=== PATIENT | female | born 1975 | race Caucasian/White ===

== ENCOUNTER 2021-06-23 10:25 | Outpatient (CLI) | payer OTHER, SELFPAY ==
[2021-06-23 10:38] LABS: Basophils Percent Auto 0.7 % (0.2-1.2); Eosinophils Absolute Auto 0.1 K/mm3 (0-0.3); Eosinophils Percent Auto 1.3 % (0-4.4); Hematocrit 39.5 % (37.0-47.0); Hemoglobin 12.9 g/dL (12.0-15.0); Immature Granulocyte Absolute 0.02 K/mm3 (0.00-0.031); Immature Granulocyte Percent A 0.3 % (0-0.5); Lymphocytes Absolute Auto 1.55 K/mm3 (0.9-3.2); Lymphocytes Percent Auto 25.5 % (18.3-44.2); Mean Corpuscular HGB Conc 32.7 g/dl (32-36); Mean Corpuscular Hemoglobin 31.8 pg (26-34); Mean Corpuscular Volume 97.3 fl (80-100); Mean Platelet Volume 8.9 fl (7.4-10.4); Monocytes Absolute Auto 0.5 K/mm3 (0.1-0.6); Monocytes Percent Auto 7.7 % (2.6-8.5); Neutrophils Absolute Auto 3.9 K/mm3 (1.3-6.7); Neutrophils Percent Auto 64.5 % (45.5-73.1); Platelet Count Result 232 k/mm3 (150-375); Red Blood Count 4.06 M/mm3 (4.2-5.4); Red Cell Distribution Width 12.6 % (11.5-14.5); White Blood Count 6.1 K/mm3 (4.5-10.0)
[2021-06-23 10:48] LABS: Alanine Aminotransferase 14 U/L (4-35); Albumin Level 4.6 g/dL (3.5-5.1); Alkaline Phosphatase 49 U/L (38-126); Anion Gap 8 mmol/L (8-16); Aspartate Amino Transferase 26 U/L (14-36); Bilirubin,Total 0.6 mg/dL (0.2-1.3); Blood Urea Nitrogen 10 mg/dL (7-17); Calcium 9.3 mg/dL (8.4-10.2); Carbon Dioxide 24 mmol/L (22-30); Chloride 106 mmol/L (98-107); Cholesterol 232 mg/dL (0-200); Estimated Glomerular Filt Rate > 60; Glucose 107 mg/dL (65-110); HDL Direct 89 mg/dL; Potassium 3.8 mmol/L (3.4-5.0); Sodium 138 mmol/L (137-145); Triglycerides 83 mg/dL (<150)
[2021-06-23 11:00] LABS: LDL Cholesterol Direct 104 mg/dL
[2021-06-23 11:19] LABS: Thyroid Stimulating Hormone 0.773 uIU/mL (0.465-4.680)
== END 2021-06-23 10:26 | disposition home or self-care (01) ==
LOC: ANHLAB 10:28
PROVIDERS: PCP Internal Medicine; Visit Provider Nurse Practitioner
DX: R53.83 Other fatigue (principal); Z13.29 Encounter for screening for other suspected endocrine disorder; Z13.220 Encounter for screening for lipoid disorders
CPT/HCPCS: 36415; 80053; 80061; 84443; 85025

== ENCOUNTER 2022-07-11 09:06 | Emergency (ER) | payer BC, SELFPAY ==
[2022-07-11 09:09] VITALS: BP 128/62; PULSE 83; RESP 18; TEMP 36.7; O2SAT 100
--- NOTE | 2022-07-11 09:25 | ED.LOWEXIN ---
HPI - Extremity Injury (Lower) General Chief Complaint: Extremity Injury, Lower Stated Complaint: left sciatic nerve pain Time Seen by Provider: 07/11/22 09:13 History of Present Illness HPI Narrative: 46-year-old female here for evaluation of left low back pain over the past day and a half. She denies any obvious injury or trauma but states that she was painting her house yesterday and the pain started shortly afterwards. The pain starts in her left hip and radiates down into her foot. Describes it as a sharp shooting sensation. She denies history of previous similar sensation. No fevers, chills, incontinence or retention of bowel or bladder, saddle anesthesia, weakness in the limbs. Related Data Allergies Allergy/AdvReac Type Severity Reaction Status Date / Time sulfamethizole Allergy Unknown Headache,itchy Verified 07/11/22 09:12 feet, body aches STERISTRIPS Allergy Unknown SEVERE RASH Uncoded 07/11/22 09:12 Review of Systems Review of Systems: Gen: Denies fevers or chills Eyes: Denies eye pain or visual change ENT: Denies congestion Respiratory: Denies shortness of breath or cough CV: Denies chest pain or palpitations GI: Denies abdominal pain nausea, emesis or diarrhea denies burning, urgency, frequency or hematuria Musculoskeletal: Reports left hip pain Neuro: Denies numbness, tingling, weakness or focal weakness Skin: Denies rash Except as documented, all other systems reviewed and negative [facility] Past Medical History Medical History Allergies Basal cell carcinoma Heartburn Melanoma Unspecified abdominal pain Surgical History Surgical History History of cholecystectomy Family History Family History Father Hypertension Grandparent Family history of malignant neoplasm of stomach Family history of malignant neoplasm of kidney Father Hypertension Grandparent Family history of allergic disorder Family history of malignant neoplasm of stomach Family history of malignant neoplasm of kidney Social History Social History (Updated 07/01/22 @ 13:42 by Lucie Hall CMA) Smoking status: Never smoker Alcohol intake: current Alcohol use details: 3-4 drinks a week Substance use: never Lack of Transportation: No Lack of Food: Never True Current Housing: I Have Housing Concerned About Future Housing: No Difficulty Paying Gas/Electric Bills: No Difficulty Paying for Meds: No Currently Unemployed: No Education: Master's Degree or Higher Difficulty w/ Childcare or Family Care: No Exam Narrative: APPEARANCE: Well appearing, no pain in distress, well-nourished. Head: Normocephalic and atraumatic. EYES: PERRLA/EOMI, conjunctivae clear NOSE: No nasal drainage EARS: External ear normal in appearance THROAT: Oropharynx is clear. Mucous membranes are moist. NECK: Supple. No adenopathy, no masses. RESPIRATORY: Airway patent, respirations nonlabored. Clear to auscultation bilaterally, no rales, rhonchi, wheezing. CARDIOVASCULAR: Regular rate and rhythm without murmurs, rubs, or gallops. ABDOMINAL: Normoactive bowel sounds. Soft, nontender, nondistended. No rebound tenderness or guarding. MUSCULOSKELETAL: Straight leg raise positive on the left. Extremities are warm and well-perfused. Moves all extremities well. No edema. NEURO: Normal speech. No focal neurologic deficits. SKIN: Skin is warm and dry. No rashes. PSYCHIATRIC: Normal affect/mood. Course Vital Signs Vital signs: Vital Signs Temperature 98.0 F 07/11/22 09:09 Pulse Rate 83 07/11/22 09:09 Respiratory Rate 18 07/11/22 09:09 Blood Pressure 128/62 07/11/22 09:09 Pulse Oximetry 100 07/11/22 09:09 Oxygen Delivery Room Air 07/11/22 09:09 Temperature 98.0 F 07/11/22 09:09 Pulse Rate 94 07/11/22 09:37 R
[2022-07-11 09:37] VITALS: BP 114/59; PULSE 94; RESP 16; O2SAT 100
== END 2022-07-11 09:37 | disposition home or self-care (01) ==
PROVIDERS: Emergency Provider Physician Assistant; PCP Internal Medicine
DX: M54.42 Lumbago with sciatica, left side (principal)
CPT/HCPCS: 99283

== ENCOUNTER 2022-07-15 10:33 | Outpatient (CLI) | payer BC, SELFPAY ==
--- NOTE | ~2022-07-15 | XR_ITS ---
XR lumbar spine 2-3V DATE: 07/15/2022 10:56 INDICATION: Sciatica TECHNIQUE: AP, lateral, coned lateral lumbosacral views COMPARISON: None FINDINGS: Minimal thoracolumbar levoscoliosis Normal alignment lumbar spine. No fracture or bone dest ruction or spondylolisthesis. The lumbar and included lower thoracic pedicles are intact. Lumbar and lumbosacral interspaces are well preserved. The sacroiliac joints are normal. Status post cholecystectomy. IMPRESSION: Negative lumbar spine Reviewed, dictated and finalized at location L. ERN CHART WRITER IMPRESSION: Negative lumbar spine
== END 2022-07-15 10:34 | disposition home or self-care (01) ==
LOC: ANHIMG 10:36
PROVIDERS: PCP Internal Medicine; Visit Provider Nurse Practitioner
DX: M54.30 Sciatica, unspecified side (principal)
CPT/HCPCS: 72100

== ENCOUNTER 2022-10-02 09:14 | Outpatient (CLI) | payer BC, SELFPAY ==
[2022-10-02 10:23] LABS: Basophils Absolute Auto 0.1 K/mm3 (0.0-0.1); Eosinophils Absolute Auto 0.2 K/mm3 (0-0.3); Eosinophils Percent Auto 3.5 % (0-4.4); Hematocrit 39.7 % (37.0-47.0); Hemoglobin 13.5 g/dL (12.0-15.0); Immature Granulocyte Absolute 0.01 K/mm3 (0.00-0.031); Immature Granulocyte Percent A 0.2 % (0-0.5); Lymphocytes Percent Auto 32.7 % (18.3-44.2); Mean Corpuscular Hemoglobin 32.5 pg (26-34); Mean Corpuscular Volume 95.7 fl (80-100); Mean Platelet Volume 9.5 fl (7.4-10.4); Monocytes Absolute Auto 0.5 K/mm3 (0.1-0.6); Monocytes Percent Auto 10.4 % (2.6-8.5); Neutrophils Absolute Auto 2.7 K/mm3 (1.3-6.7); Neutrophils Percent Auto 52.2 % (45.5-73.1); Platelet Count Result 247 k/mm3 (150-375); Red Blood Count 4.15 M/mm3 (4.2-5.4); Red Cell Distribution Width 12.3 % (11.5-14.5); White Blood Count 5.2 K/mm3 (4.5-10.0)
[2022-10-02 10:37] LABS: Alanine Aminotransferase 15 U/L (6-35); Albumin Level 4.8 g/dL (3.5-5.1); Alkaline Phosphatase 51 U/L (38-126); Anion Gap 9 mmol/L (8-16); Aspartate Amino Transferase 23 U/L (14-36); Bilirubin,Total 1.1 mg/dL (0.2-1.3); Blood Urea Nitrogen 13 mg/dL (7-17); Calcium 9.1 mg/dL (8.4-10.2); Carbon Dioxide 26 mmol/L (22-30); Chloride 102 mmol/L (98-107); Cholesterol 237 mg/dL (0-200); Estimated Glomerular Filt Rate > 60; Glucose 98 mg/dL (65-110); HDL Direct 98 mg/dL; Potassium 4.1 mmol/L (3.4-5.0); Sodium 137 mmol/L (137-145); Triglycerides 56 mg/dL (<150)
[2022-10-02 10:40] LABS: Rheumatoid Factor < 12.0 IU/ML (<12)
[2022-10-02 10:48] LABS: LDL Cholesterol Direct 102 mg/dL
[2022-10-02 10:51] LABS: Erythrocyte Sedimentation Rate 14 mm/hr (0-20)
[2022-10-07 15:02] LABS: ANA Cascade Screen Negative (Negative)
== END 2022-10-02 09:15 | disposition home or self-care (01) ==
PROVIDERS: PCP Internal Medicine; Visit Provider Nurse Practitioner
DX: Z13.29 Encounter for screening for other suspected endocrine disorder (principal); M25.50 Pain in unspecified joint; Z13.220 Encounter for screening for lipoid disorders
CPT/HCPCS: 36415; 80053; 80061; 84443; 85025; 85652; 86038; 86430

== ENCOUNTER 2022-10-07 09:00 | Outpatient (RCR) | payer BC, SELFPAY ==
--- NOTE | 2022-08-12 16:50 | PTOPEVAL1 ---
Assessment and note entered by Segundo Gaona, PT, DPT Evaluation Information Assessment Status Evaluation Diagnosis R sided sciatic pain Onset 1 month Subjective Information Pt states she has had lower back and gisele hip pain for about a year. About a month ago she had a sciatic nerve irritation that sent her to the ED. She states the steroids that gave her helped with the pain. Now she just feels stiff and achy in her L hip with intermittent shooting pains down into her buttock. Pt states her and her enjoy hiking and generally do about 3 miles a weekend. Reported Pain Level Pain Score 1: Self Report Assessment PT Clinical Summary Rosita presents to therapy today for her initial evaluation with a diagnosis of sciatica. Today she demonstrates decreased hip strength gisele, decreased core strength, hip tightness, and increased soft tissue density to gisele piriformis regions. She demonstrates decreased functional mobility as her time to both sit and stand is limited by pain. Skilled physical therapy services are indicated to improve pain reports, to improve soft tissue mobility, for core and hip strengthening, to improve stability, and to promote unlimited functional mobility. Plan of Care Interventions Check Out for Orthotic/Pr,Electrical Stimulation, Gait Training,Hot Pack/Cold Pack,Manual Therapy, Neuro Re-education,Patient/Caregiver Educati, Therapeutic Activities,Therapeutic Exercise PT Services Indicated Yes Treatment Frequency and 2x/wk for 4 wks Duration These treatments will address the objective and functional deficits as defined above. The patient will be advanced safely and appropriately in order for the patient to progress towards his/her prior level of function. Additional exercises will be introduced and as well as a comprehensive home exercise program upon discharge, if needed, ?to ensure carryover of functional gains achieved in the clinic. This treatment plan has been reviewed and agreement upon by the patient.
--- NOTE | 2022-08-26 12:37 | PCPTNOTE ---
Patient called to cancel appointment this date due to having family illness.
--- NOTE | 2022-09-09 10:01 | PTOPPROG ---
Assessment and note entered by Segundo Gaona, PT, DPT Evaluation Information Assessment Status Progress Diagnosis R sided sciatic pain Onset 1 month Subjective Information Pt states overall she is making progress. She states her low back is sore today and is feeling a little nervy and shooting . Pt reports 60% improvement in overall symptoms. Assessment PT Clinical Summary Rosita presents to therapy today for her progress report following 5 visits of skilled therapy to treat her low back pain with sciatic nerve pain. Today she reports no sciatic symptoms and demonstrates a negative slump test gisele. Today she demonstrates improve lumbar and LE ROM that is pain free. Her BLE strength has improved to grossly 4+/5. She continues to have decreased core strength but this is progressing well. She would like to continue her exercises on her own and follow up in 1 month if needed. Plan of Care Interventions Check Out for Orthotic/Pr,Electrical Stimulation, Gait Training,Hot Pack/Cold Pack,Manual Therapy, Neuro Re-education,Patient/Caregiver Educati, Therapeutic Activities,Therapeutic Exercise PT Services Indicated Yes Treatment Frequency and follow up in 1 month if needed Duration These treatments will address the objective and functional deficits as defined above. The patient will be advanced safely and appropriately in order for the patient to progress towards his/her prior level of function. Additional exercises will be introduced and as well as a comprehensive home exercise program upon discharge, if needed, ?to ensure carryover of functional gains achieved in the clinic. This treatment plan has been reviewed and agreement upon by the patient.
--- NOTE | 2022-10-07 09:39 | PTOPDC ---
Assessment and note entered by Segundo Gaona, PT, DPT Evaluation Information Assessment Status Discharge Diagnosis R sided sciatic pain Onset 1 month Subjective Information Pt states overall things are going well. She states occasionally she will still have some stiffness that takes a few mins to work out. She states a couple of days ago she had some nerve pain that went away on its own. Pt reports a full return to baseline. Reported Pain Level Pain Score 0,0: Self Report Assessment PT Clinical Summary Rosita presents to therapy today for her progress report following 6 visits of skilled therapy to treat her low back pain with sciatic nerve pain. Today she reports no sciatic symptoms and reports minimal low back pain in the last week. She has met all of her therapy goals and has returned to her PLOF. She will be discharged at this time. Plan of Care PT Services Indicated No
== END 2022-10-15 14:39 | disposition home or self-care (01) ==
LOC: ANHGOSHPT 09:00
PROVIDERS: PCP Internal Medicine; Visit Provider Nurse Practitioner
DX: M54.30 Sciatica, unspecified side (principal)
CPT/HCPCS: 97110; 97112; 97140; 97161; 97530

== ENCOUNTER 2023-09-29 10:30 | Outpatient (CLI) | payer BC, SELFPAY ==
[2023-09-29 13:48] LABS: Basophils Absolute Auto 0.1 K/mm3 (0.0-0.1); Basophils Percent Auto 1.2 % (0.2-1.2); Eosinophils Absolute Auto 0.1 K/mm3 (0-0.3); Eosinophils Percent Auto 2.1 % (0-4.4); Hematocrit 39.2 % (37.0-47.0); Hemoglobin 13.2 g/dL (12.0-15.0); Immature Granulocyte Absolute 0.01 K/mm3 (0.00-0.031); Immature Granulocyte Percent A 0.2 % (0-0.5); Lymphocytes Absolute Auto 1.23 K/mm3 (0.9-3.2); Lymphocytes Percent Auto 29.1 % (18.3-44.2); Mean Corpuscular HGB Conc 33.7 g/dl (32-36); Mean Corpuscular Hemoglobin 32.6 pg (26-34); Mean Corpuscular Volume 96.8 fl (80-100); Mean Platelet Volume 9.5 fl (7.4-10.4); Monocytes Absolute Auto 0.4 K/mm3 (0.1-0.6); Monocytes Percent Auto 9.5 % (2.6-8.5); Neutrophils Absolute Auto 2.4 K/mm3 (1.3-6.7); Neutrophils Percent Auto 57.9 % (45.5-73.1); Platelet Count Result 254 k/mm3 (150-375); Red Blood Count 4.05 M/mm3 (4.2-5.4); Red Cell Distribution Width 12.3 % (11.5-14.5); White Blood Count 4.2 K/mm3 (4.5-10.0)
[2023-09-29 16:31] LABS: Alanine Aminotransferase 10 U/L (6-35); Albumin Level 4.6 g/dL (3.5-5.1); Alkaline Phosphatase 52 U/L (38-126); Anion Gap 9 mmol/L (4-12); Aspartate Amino Transferase 39 U/L (14-36); Bilirubin,Total 0.8 mg/dL (0.2-1.3); Blood Urea Nitrogen 14 mg/dL (7-17); Calcium 9.4 mg/dL (8.4-10.2); Carbon Dioxide 23 mmol/L (22-30); Chloride 106 mmol/L (98-107); Cholesterol 236 mg/dL (0-200); Estimated Glomerular Filt Rate > 60; Glucose 96 mg/dL (65-110); HDL Direct 80 mg/dL; Sodium 138 mmol/L (137-145); Triglycerides 73 mg/dL (<150)
[2023-09-29 16:42] LABS: LDL Cholesterol Direct 116 mg/dL
[2023-09-29 16:57] LABS: Thyroid Stimulating Hormone 0.822 uIU/mL (0.465-4.680)
[2023-09-29 18:31] LABS: Vitamin D 25 Hydroxy 41.8 ng/mL
== END 2023-09-29 10:31 | disposition home or self-care (01) ==
LOC: ANHGOSHLAB 10:32
PROVIDERS: PCP Internal Medicine; Visit Provider Nurse Practitioner
DX: E55.9 Vitamin D deficiency, unspecified (principal); R53.83 Other fatigue; Z13.220 Encounter for screening for lipoid disorders; Z13.29 Encounter for screening for other suspected endocrine disorder
CPT/HCPCS: 36415; 80053; 80061; 82306; 84443; 85025

== ENCOUNTER 2024-09-13 11:42 | Outpatient (CLI) | payer BC, SELFPAY ==
--- OUTSIDE RECORDS SUMMARY | 2024-09-13 11:45 | XMS_ITS | Referral Summary ---
Author Organization [facility] Address [address] [place] [address] Phone Care Team Providers Care Specialty Sales Representative Name Role Phone Vlad Rojas DO Primary Care Provider [phone] Rylee Godfrey MD Unavailable Allergies Active Allergy Reactions Criticality Noted Date Comments Sulfa (Sulfonamide Antibiotics) Itching,Fever,Headache ,Nausea only Medium Reaction: Headache, Nausea, Fever, Itching, Medications naproxen (ALEVE) 220 mg tablet Take 1 tablet (220 mg total) by mouth as needed Active cyclobenzaprine (FLEXERIL) 5 mg tablet Take 1 tablet (5 mg total) by mouth 2 (two) times a day as needed for muscle spasms Active polyethylene glycol (MIRALAX) 17 gram/dose powder Take 17 g by mouth daily 510 g 11 10/19/2021 Active psyllium (MetamuciL) 0.4 gram capsule Take 1 capsule (0.4 g total) by mouth daily 09/06/2022 Active Active Problems Problem Noted Date Diagnosed Date Other chest pain 02/07/2023 Assessment & Plan (04/11/2023 9:44 AM BLASTING COAL MINER): Resolved. Assessment & Plan (02/07/2023 10:11 AM CDT): Resolved. Palpitations 02/07/2023 Assessment & Plan (04/11/2023 9:45 AM BLASTING COAL MINER): Appears to be having PACs on the brief EKG from her Apple watch. 7 day Holter with less than 1% SVE and VE. TSH WNL. TSH. No additional recs, follow up as needed. Assessment & Plan (02/07/2023 10:12 AM CDT): Appears to be having PACs on the brief EKG from her Apple watch. 7 day Holter, follow up with PCP, TSH. 2 months to review holter, avoid caffeine, ETOH and stay hydrated. Colon cancer screening 08/27/2021 Overview (08/27/2021): Added automatically from request for surgery [id number] Gastric pain 08/27/2021 Overview (08/27/2021): Added automatically from request for surgery [id number] Other constipation 08/27/2021 Overview (08/27/2021): Added automatically from request for surgery [id number] ASCUS of cervix with negative high risk HPV 06/09 Overview (09/21/2022): 1997 abnl pap followed by nml colpo then nml paps until ASCUS, HP neg 4-2019 ASCUS, HPV neg 2-20 cotest neg (collected per pt request) NILM/HPV neg 5-23 ASCUS/HPV neg 5-26 ( ) repeat pap Assessment & Plan (06/25/2019 3:04 PM BLASTING COAL MINER): 1997 abnl pap followed by nml colpo then nml paps until ASCUS, HP neg 4-2019 ASCUS, HPV neg Immunizations Immunization Administration Dates Next Due Influenza, Unspecified 02/21/2020 Pfizer SARS-CoV-2 Monovalent Vaccination (12+ Yrs) PURPLE 05/18/2020,04/27/2020 Social History Tobacco Use Types Packs/Day Years Used Date Smoking Tobacco: Never Smokeless Tobacco: Never Tobacco Cessation:Counseling Given: Not Answered Alcohol Use Standard Drinks/Week Comments Yes 1 (1 standard drink = 0.6 oz pur e alcohol) socially AUDIT-C Answer Date Recorded Q1: How often do you have a drink containing alc ohol? 2-3 times a week 09/15/2023 Q2: How many drinks containi ng alcohol do you have on a typical day when you are drinking? 1 or 2 09/15/2023 Q3: How often do you have si x or more drinks on one occasion? 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 file Not on file Last Filed Vital Signs Vital Sign Reading Time Taken Comments Blood Pressure 114/74 09/15/2023 11:15 AM CDT Pulse 66 08/21/2023 4:21 PM CDT Temperature 36.8 C (98.3 F) 08/21/2023 4:21 PM CDT Respiratory Rate 16 08/21/2023 4:21 PM CDT Oxygen Saturation 100% 08/21/2023 4:21 PM CDT Inhaled Oxygen Concentration - - Weight 77 kg (169 lb 12.8 oz) 09/15/2023 11:15 A M CDT Height 172.7 cm (5' 8 ) 09/15/2023 11:15 AM CDT Body Mass Index 25.82 09/15/2023 11:15 AM CDT Plan of Treatment Not on file Procedures Procedure Name Priority Date/Time Associated Diagnosis Comments SCREENING MAMMOGRAM BILATERAL W MARLON Schedule Routine, Read Routine (OP Routine) 12/29/2023 10:41 AM CDT Screening mammogram, encounter for PAP AND HIGH RISK HPV, REFLEX TO GENOTYPING Routine 09/09/2022 2:35 PM CDT Cervical cancer screening COLONOSCOPY 10/19/2021 8:17 AM CDT from Last 3 Months or Most Recently Relevant to Health Maintenance Results * Screening Mammogram Bilateral W Marlon (12/29/2023 10:41 AM CDT) Anatomical Region Laterality Modality Breast Bilateral Mammography Narrative 12/29/2023 4:21 PM CDT Mammogram Technique: Bilateral Digital Breast Tomosynthesis, Bilateral C-view 2D Screening mammogram. Views obtained: bilateral craniocaudal and bilateral mediolateral oblique. Computer Aided Detection was performed. Mammogram Findings: The present examination has been compared to prior imaging studies performed at [facility] on 08/14/2020, 10/15/2021 and 12/16/2022. The breasts are almost entirely fatty. There is no suspicious abnormality in either breast. Impression: There is no mammographic evidence of malignancy. Annual screening mammography is recommended. OVERALL FINAL ASSESSMENT: BI-RADS CATEGORY 1: Negative. Procedure Note Melissa Burnett MD - 12/29/2023 Mammogram Technique: Bilateral Digital Breast Tomosynthesis, Bilateral C-view 2D Screening mammogram. Views obtained: bilateral craniocaudal and bilateral mediolateral oblique. Computer Aided Detection was performed. Mammogram Findings: The present examination has been compared to prior imaging studies performed at [facility] on 08/14/2020, 10/15/2021 and 12/16/2022. The breasts are almost entirely fatty. There is no suspicious abnormality in either breast. Impression: There is no mammographic evidence of malignancy. Annual screening mammography is recommended. OVERALL FINAL ASSESSMENT: BI-RADS CATEGORY 1: Negative. us Self Screening Mammogram IMG MAMMO PROCEDURES Fi nal Result * (ABNORMAL) Pap and High Risk HPV, reflex to Genotyping (09/09/2022 2:35 PM CDT) Thin prep (Pap test) 09/09/2022 2:35 PM CDT 09/14/2022 3:13 PM CDT Narrative PATHOLOGY [facility] - 09/19/2022 7:25 PM CDT EPIC results best viewed via link to PDF [address] [address] Tele: Dionne Perdomo MD - [facility] CYTOLOGY REPORT Note to Patients: This report may contain a detailed description of human tissue sent by a health care provider to the laboratory for pathologic evaluation. The content of this report is essential for diagnosis and may provide important critical findings. This information may be unfamiliar to patients to review without a medical professional present. It is advised that the patient review this report in the presence of a health care provider who can answer questions and explain the details. Patient Name: FRANSISCA MACK Address: [address] [place] [address], [place] [address] Gender: F : 1975 (Age: 47) Service: Location: [facility] #: [id number] Patient Type: [facility] SPECIMEN Taken: 09/09/2022 Reported: 09/19/2022 Physician(s): RONAK Allen FINAL DIAGNOSIS: SOURCE OF SPECIMEN - ThinPrep Pap and HPV w/ reflex Genotyping: STATEMENT OF ADEQUACY Source: Cervical/Endocervical - Satisfactory for interpretation - Endocervical /Transformation Zone component present - Case screened using computer assisted imaging technology and manually re- screened by a horse rancher. GENERAL CATEGORIZATION: - Epithelial cell abnormality INTERPRETATION: - Atypical squamous cells of undetermined significance (ASCUS) as/09/19/2022 19:25Examining Pathologist: Gianni Angel CT (ASCP) Report Reviewed and Electronically Signed By Seven Sebastian M.D.Clerical Data Follow A; G0145, 53745 Z12.4 DIAGNOSIS COMMENT: Ancillary Testing: HPV High Risk Group (16, 18, 31, 33, 35, 39, 45, 51, 52, 56, 58, 59, 66 and 68) - Not Detected Reference Range: Not Detected This test was performed using the FERMIN 4800 CLINICAL DIAGNOSIS AND HISTORY Last Menstrual Period: 08/17/2022 Previous Abnormal History: Previous Abnormal Pap: 2019 NILM/HPV NEG, 2018 ASCUS/HPV NEG, 2017 ASCUS/HPV NEG REPORT IMAGES AND/OR SCANNED DOCUMENTS ONLY VIEWABLE IN PDF FORMAT The Pap test is a screening test used to aid in the detection of cervical cancer and its precursors. It should not be the sole means by which malignant and premalignant lesions are diagnosed. Both false negative and false positive results may occur. It also has poor sensitivity for the detection of endometrial lesions and should not be used to evaluate suspected endometrial abnormalities. For these reasons it is most important to obtain Pap tests at regular intervals, as recommended by your physician or nurse practitioner. us Chari Moncada RECLAMATION ENGINEER LAB CYTOLOGY ORDERABL ES Final Result PATHOLOGY [facility] Laboratory Receiving [address] [place] [address] * COLONOSCOPY (10/19/2021 8:17 AM CDT) Anatomical Region Laterality Modality Other Narrative Procedure Note Ramona Douglas MD - 10/19/2021 8:17 AM CDT GI ENDOSCOPY [facility] Patient Name: Fransisca Mack Procedure Date: 10/19/2021 8:17 AM Date of : 1975 Admit Type: Outpatient Age: 46 Gender: Female Attending MD: Ramona Douglas M.D. Room: [facility] ENDOSCOPY ROOM 8 Note Status: Finalized Procedure: Colonoscopy Indications: Screening for colorectal malignant neoplasm, Thisis the patient's first colonoscopy Referring MD: Rylee Godfrey M.D. Providers: Ramona Douglas M.D. Medicines: Monitored Anesthesia Care Complications: No immediate complications. Estimated Blood Loss: Estimated blood loss: none. Procedure: Pre-Anesthesia Assessment: - Prior to the procedure, a History and Physicalwas performed, and patient medications, allergies and sensitivities were reviewed. The patient'stolerance of previous anesthesia was reviewed. - Immediately prior to administration ofmedications, the patient was re-assessed for adequacy to receive sedatives. - The risks and benefits of the procedure and the sedation options and risks were discussed with the patient. All questions were answered and informed consent was obtained. The benefits, risks and alternatives of theprocedure and sedation were discussed and informed consentwas obtained. All questions were answered. Please referto the signed informed consent document in the medical record. The scope was passed under direct vision.The [id number] endoscope was introduced through the anus and advanced to the terminal ileum. The colonoscopy was performed without difficulty. The bowel preparation used was GoLYTELY via split dose instruction. The quality of the bowel preparationwas excellent. The quality of the bowel preparation was evaluated using the BBPS (Empire Bowel Preparation Scale) with scores of: Right Colon = 3 (entiremucosa seen well with no residual staining, smallfragments of stool or opaque liquid), Transverse Colon = 3 (entire mucosa seen well with no residual staining, small fragments of stool or opaque liquid) and Left Colon = 3 (entire mucosa seen well with no residual staining, small fragments of stool or opaqueliquid). The total BBPS score equals 9. Findings: The perianal and digital rectal examinations were normal. The terminal ileum appeared normal. Retroflexion in the right colon was performed. The colon (entire examined portion) appeared normal. Anal papilla(e) were hypertrophied. Impression: - The examined portion of the ileum was normal. - The entire examined colon is normal. - Anal papilla(e) were hypertrophied. - No specimens collected. Recommendation: - Repeat colonoscopy in 10 years for screening purposes. Electronically signed by Ramona Douglas MD Ramona Douglas M.D. 10/19/2021 8:47:52 AM . Number of Addenda: 0 Note Initiated On: 10/19/2021 8:17 AM Recognized by the [place] [employer] for promoting quality in endoscopy Ramona Douglas MD ENDOSCOPY PROCEDURES Final Resu lt from Last 3 Months or Most Recently Relevant to Health Maintenance Insurance Cimetrix OOS Cimetrix OOS BLUE ACCESS OOS Advance Directives For more information, please contact: [phone] * Full Code (Latest Code Status on File) Date Activated Date Inactivated Comments 10/19/2021 7:43 AM 10/19/2021 1:25 PM Care Teams Specialty Sales Representative Relationship Specialty Start Date End Date Vlad Rojas DO PCP - General Internal Medicine 08/15/18 Rylee Godfrey MD [address] [place] [address] DR Nisha LAM [address] [place] [id number] Consulting Physician Obstetrics and Gynecology 12/04/18
--- OUTSIDE RECORDS SUMMARY | 2024-09-13 11:45 | XMS_ITS | Encounter Summary ---
Author Organization [facility] Address [address] [facility] [place] [address] Care Team Providers Care Car Record Clerk Name Role Phone Unavailable Primary Care Provider Unavailabl e Encounter Details Date Type Department Care Team (Late st Contact Info) Description 05/24/2022 Lab Requisition [facility] DermPath Lab [address] [place] [address] Ash Cortez MD [address] [address] Social History Tobacco Use Types Packs/Day Years Used Date Smoking Tobacco: Never Assessed Comments Unknown Sex and Gender Information Value Date Recorded Sex Assigned at Not on file Legal Sex Female 7:07 PM RECRUITING ASSISTANT Gender Identity Not on file Sexual Orientation Not on file documented as of this encounter Plan of Treatment Not on file documented as of this encounter Procedures Procedure Name Priority Date/Time Associated Diagnosis Comments DERMATOPATHOLOGY Routine 05/21/2022 12:0 0 AM RECRUITING ASSISTANT documented in this encounter Results * DERMATOPATHOLOGY (05/21/2022 12:00 AM RECRUITING ASSISTANT) Case Report Dermatopathology Report Case: [id number] Authorizing Provider: Ash Cortez MD Collected: 05/21/2022 12:00 AM Ordering Location: [facility] DermPath Lab Received: 05/24/2022 12:17 PM Pathologist: Keya Tucker MD Specimen: Skin, right mid lateral calf 1:28 PM RECRUITING ASSISTANT DERMATOPATHOLOGY LABORATORY Final Diagnosis Specimen A. SKIN, right mid lateral calf: HYPERPLASTIC (HYPERTROPHIC) ACTINIC KERATOSIS (L57.0) 3 1:28 PM RECRUITING ASSISTANT DERMATOPATHOLOGY LABORATORY Clinical History R/O SCC ISK vs Other 1:28 PM [facility] DERMATOPATHOLOGY LABORATORY Gross Description Specimen A: Received is one formalin filled container labeled with the patient's name and designated right mid lateral calf. The specimen consists of a shave biopsy measuring 9x6x1 mm. Jar 0. 1:28 PM [facility] DERMATOPATHOLOGY LABORATORY Microscopic Description Specimen A. SKIN, right mid lateral calf: There is hyperkeratosis alternating with parakeratosis. There is epidermal hyperplasia with disorderly maturation of keratinocytes with nuclear pleomorphism confined to the lower half of the epidermis. 1:28 PM [facility] DERMATOPATHOLOGY LABORATORY Disclaimer An external and internal positive and negative controls are appropriate for the histochemical, immunohistochemical and immunofluorescence stain(s) in this case (if any), except where stated explicitly. The performance characteristics of the stain(s) cited in this report were developed and its performance characteristic determined by the Dermatopathology Laboratory at [facility], directed by Dr. Osmany Tucker. These tests need not be, and therefore are not, approved by the [place] Food and Drug Administration. The tests are used for clinical purposes. Billing Codes Specimen Charges Stain Charges 58671 1 1:28 PM [facility] DERMATOPATHOLOGY LABORATORY Embedded Images 1:28 PM [facility] DERMATOPATHOLOGY LABORATORY Pathology/Cytolog y TISSUE SPECIMEN FROM SKIN / Unknown 05/21/2022 05/24/2022 12:17 PM RECRUITING ASSISTANT Ash Cortez MD LAB - PATHOLOGY/CYTOLOGY ORD ERABLES Final Result DERMATOPATHOLOGY LABORATORY [facility] - Department of Dermatology [address], [address] Floor [address] [phone] documented in this encounter Visit Diagnoses Not on filedocumented in this encounter
--- OUTSIDE RECORDS SUMMARY | 2024-09-13 11:45 | XMS_ITS | Encounter Summary ---
Author Organization [facility] Address [address] [place] [address] Phone Care Team Providers Care Forklift Picker Name Role Phone Vald Rojas DO Primary Care Provider [phone]- [phone] Rylee Godfrey MD Unavailable Encounter Details Date Type Department Care Team (Latest Contact Info) Description 10/02/2022 Orders Only [facility] Scanning, Provider Social History Tobacco Use Types Packs/Day Years Used Date Smoking Tobacco: Never Smokeless Tobacco: Never Alcohol Use Standard Drinks/Week Comments Yes 1 (1 standard drink = 0.6 oz pur e alcohol) socially AUDIT-C Answer Date Recorded Q1: How often do you have a drink containing alc ohol? 2-3 times a week 10/19/2021 Q2: How many drinks containi ng alcohol do you have on a typical day when you are drinking? 1 or 2 10/19/2021 Q3: How often do you have si x or more drinks on one occasion? 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 file Not on file documented as of this encounter Plan of Treatment Not on file documented as of this encounter Procedures Procedure Name Priority Date/Time Associated Diagnosis Comments SCAN - LABS 10/02/2022 documented in this encounter Results * SCAN - LABS (10/02/2022) us Provider Scanning Final Result documented in this encounter Visit Diagnoses Not on filedocumented in this encounter Care Teams Forklift Picker Relationship Specialty Start Date End Date Vlad Rojas DO PCP - General Internal Medicine 08/15/18 Rylee Godfrey MD [address] [place] [address] DR Nisha LAM [address] [place] [id number] Consulting Physician Obstetrics and Gynecology 12/04/18 documented as of this encounter
--- OUTSIDE RECORDS SUMMARY | 2024-09-13 11:45 | XMS_ITS | Clinical Summary ---
Author Organization [facility] Address [address] [place] [address] Care Team Providers Care Soft Sugar Cutter Name Role Phone Unavailable Primary Care Provider Unavailabl e Source Comments [facility],non-owned Affiliates and Associated Physician Practices is amultiple site organization consisting of ambulatory clinics and hospital sitesin [place], [place], [place] and [place]. This disclosure is being madepursuant to the Care Everywhere program and may not contain all information available regarding this patient. 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 Gender Identity Not on file Sexual Orientation Not on file Plan of Treatment Health Maintenance Due Date Last Done Comments COLOGUARD (AGES 45-75) - COL ON CA SCREENING 1974 COLON MONITORING 1974 COLONOSCOPY - COLON CA SCREENING 1974 CT COLONOGRAPHY - COLON CA SCREENING 1974 Colorectal Cancer Screening 1974 FIT - COLON CA SCREENING 1974 FLEX SIG - COLON CA SCREENING 1974 LIPID TESTING 1974 MAMMOGRAM 1974 PAP SMEAR 1974 HIV SCREENING 1989 HEPATITIS C SCREENING 07/30/1992 DTAP/TDAP/TD VACCINES (1 - Tdap) 1993 HEPATITIS B VACCINE (1 of 3 - 19+ 3-dose series) 1993 COVID-19 VACCINE (1 - 2023-2 5 season) 2024 DEPRESSION SCREENING 05/09/2024 PNEUMOCOCCAL VACCINE 50+ (1 of 1 - PCV) 2024 ZOSTER VACCINE (1 of 2) 2024 INFLUENZA VACCINE (Season Ended) 2025 HIB VACCINE Aged Out No longer eligi ble based on patient's age to complete this topic HPV VACCINE Aged Out No longer eligi ble based on patient's age to complete this topic MENINGOCOCCAL (Group B) VACC INE SHARED DECISION-MAKING Aged Out No longer eligibl e based on patient's age to complete this topic MENINGOCOCCAL GROUPS A/C/Y/W VACCINE Aged Out No longer eligible b ased on patient's age to complete this topic Insurance [facility]
--- OUTSIDE RECORDS SUMMARY | 2024-09-13 11:45 | XMS_ITS | Clinical Summary ---
Author Organization [facility] Address [address] [place] [address] Phone Care Team Providers Care Cable Former Name Role Phone Vlad Rojas DO Primary Care Provider [phone]- [phone] Rylee Godfrey MD Unavailable Allergies Active Allergy [...] 02/07/2023 Assessment & Plan (04/11/2023 9:44 AM ELECTRIC ORGAN ASSEMBLER): Resolved. Assessment & Plan (02/07/2023 10:11 AM CDT): Resolved. Palpitations 02/07/2023 Assessment & Plan (04/11/2023 9:45 AM ELECTRIC ORGAN ASSEMBLER): Appears to be having PACs on the [...] (08/27/2021): Added automatically from request for surgery [id number] Gastric pain 08/27/2021 Overview (08/27/2021): Added automatically from request for surgery [id number] Other constipation 08/27/2021 Overview (08/27/2021): Added automatically from request for surgery [id number] ASCUS of cervix with negative high risk HPV 06/09 Overview (09/21/2022): 1997 abnl pap followed by nml colpo then nml paps until ASCUS, HP neg 4-2018 ASCUS, HPV neg 2-20 cotest neg (collected per pt request) NILM/HPV neg 5-23 ASCUS/HPV neg 5-26 ( ) repeat pap Assessment & Plan (06/25/2019 3:04 PM ELECTRIC ORGAN ASSEMBLER): 1997 abnl pap followed by nml colpo then nml paps until ASCUS, HP neg 4-2019 ASCUS, HPV neg Immunizations Immunization Administration Dates Next Due Influenza, Unspecified 02/21/2020 Pfizer SARS-CoV-2 Monovalent Vaccination (12+ Yrs) PURPLE 05/18/2020,04/27/2020 Surgical History Surgery Date Site/Laterality Comments CHOLECYSTECTOMY MELANOMA RESECTION 05/09/2009 - 05/08/2010 leg stage 1 LASIK 07/2016 Medical History Medical History Date Comments Abnormal Pap smear of cervix Urinary tract infection GERD (gastroesophageal reflux disease) 04/08/21 Family History Medical History Relation Name Comments Hypertension Father Dad M Stomach cancer Maternal Grandfather Onset in 70's, reportedly related to H pylori metastatic cancer Maternal Grandmother On set in 80's Heart disease Paternal Grandfather Grandpa E Hyperlipidemia Paternal Grandfather Grandpa E Memory loss Paternal Grandmother Grandma A Breast cancer Neg Hx Colon cancer Neg Hx Deep vein thrombosis Neg Hx Ovarian cancer Neg Hx Relation Name Status Comments Father Dad M Alive Maternal Grandfather Maternal Grandmother Mother Alive Paternal Grandfather Grandpa E Paternal Grandmother Grandma A Social History Tobacco Use Types Packs/Day Years [...] on file Legal Sex Female 7:34 AM ELECTRIC ORGAN ASSEMBLER Gender Identity Not on file Sexual Orientation Not on file 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 file 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 file Not on file Obstetrics History Para Term AB IAB SAB Ectopic Multiple Livin g Live Births 3 3 3 3 3 Date Outcome GA Total Labor Labor/2nd/3rd Weight Sex Type Anes PTL Alondra A1 A5 Name Clin Term Term Term Comments x3 Last Filed Vital Signs Vital Sign Reading [...] 09/15/2023 11:15 AM CDT Plan of Treatment Health Maintenance Due Date Last Done Comments Depression Screening 1974 Hepatitis C Screening 1974 DTaP/Tdap/Td Vaccine (1 - Tdap) 1985 Hepatitis B Screening 1992 Cervical Cancer Screening 09/10/2023 09/09/2022 Covid-19 Vaccine (3 - season) 2024 05/18/2020, 04/27/2020 Zoster Vaccine (1 of 2) 2024 Regular Well Visit/Exam 18-64 09/14/2024 09/15/2023, 09/09/2022, 07/03/2021, Additional history exists Breast Cancer Screening-Mammogram 12/28/2024 12/29/2023, 12/16/2022, 10/15/2021, Additional history exists Influenza Vaccine (Season Ended) 2025 02/21/2020 Colon Cancer Screening-Colonoscopy 10/20/2031 10/19/2021 Pneumococcal vaccine <65 Aged Out No longer eligible based on patient's age to complete this topic Procedures Procedure Name Priority Date/Time Associated Diagnosis [...] compared to prior imaging studies performed at [facility] on 08/14/2020, 10/15/2021 and 12/16/2022. The [...] compared to prior imaging studies performed at [facility] on 08/14/2020, 10/15/2021 and 12/16/2022. The [...] CDT 09/14/2022 3:13 PM CDT Narrative PATHOLOGY [facility] - 09/19/2022 7:25 PM CDT [facility] results best viewed via link to PDF [address] [address] Tele: Dionne Perdomo MD - Machine Tool Rebuilder CYTOLOGY REPORT Note to Patients: This report [...] the details. Patient Name: FRANSISCA MACK Address: [address] [place] [address] Gender: F : 1975 (Age: 47) Service: Location: N : [id number] [facility] #: [id number] Patient Type: [facility] SPECIMEN Taken: 09/09/2022 Reported: 09/19/2022 Physician(s): RONAK Allen FINAL DIAGNOSIS: SOURCE OF SPECIMEN - ThinPrep Pap and HPV w/ reflex Genotyping: STATEMENT OF ADEQUACY Source: Cervical/Endocervical - Satisfactory for interpretation - Endocervical /Transformation Zone component present - Case screened using computer assisted imaging technology and manually re- screened by a body and fender worker. GENERAL CATEGORIZATION: - Epithelial cell abnormality INTERPRETATION: - Atypical squamous cells of undetermined significance (ASCUS) as/09/19/2022 19:25Examining Pathologist: Gianni Angel CT (ASCP) Report Reviewed and Electronically Signed By Seven Sebastian M.D.Clerical Data Follow A; G0145, 01726 Z12.4 DIAGNOSIS COMMENT: Ancillary Testing: HPV High Risk Group (16, 18, 31, 33, 35, 39, 45, 51, 52, 56, 58, 59, 66 and 68) - Not Detected Reference Range: Not Detected This test was performed using the FERMIN 4800 CLINICAL DIAGNOSIS AND HISTORY Last Menstrual Period: 08/17/2022 Previous Abnormal History: Previous Abnormal Pap: 2019 NILM/HPV NEG, 2019 ASCUS/HPV NEG, 2018 ASCUS/HPV NEG REPORT IMAGES AND/OR SCANNED DOCUMENTS [...] physician or nurse practitioner. us Chari Moncada GEAR LAPPING MACHINE OPERATOR LAB CYTOLOGY ORDERABL ES Final Result PATHOLOGY [facility] Laboratory Receiving [address] [place] [address] * COLONOSCOPY (10/19/2021 8:17 AM CDT) Anatomical Region Laterality Modality Other Narrative Procedure Note Ramona Douglas MD - 10/19/2021 8:17 AM CDT [facility] ENDOSCOPY [facility] Patient Name: Fransisca Mack Procedure Date: 10/19/2021 8:17 AM Date of : 1975 Admit Type: Outpatient Age: 46 Gender: Female Attending MD: Ramona Douglas M.D. Room: [facility] ENDOSCOPY ROOM 8 Note Status: Finalized [...] The scope was passed under direct vision.The [id number] endoscope was introduced through the anus and advanced to the terminal ileum. The colonoscopy was performed without difficulty. The bowel preparation used was GoLYTELY via split dose instruction. The quality of the bowel preparationwas excellent. The quality of the bowel preparation was evaluated using the BBPS (Perdido Bowel Preparation Scale) with scores of: Right [...] On: 10/19/2021 8:17 AM Recognized by the [employer] for promoting quality in endoscopy Ramona Douglas MD ENDOSCOPY PROCEDURES Final Resu lt from Last 3 Months or Most Recently Relevant to Health Maintenance Insurance [employer] Advance Directives For more information, please contact: [phone] * Full Code (Latest Code Status on File) Date Activated Date Inactivated Comments 10/19/2021 7:43 AM 10/19/2021 1:25 PM Care Teams Cable Former Relationship Specialty Start Date End Date Vlad Rojas DO PCP - General Internal Medicine 08/15/18 Rylee Godfrey MD [facility] [address] Nisha LAM [address] [place] [address] Consulting Physician Obstetrics and Gynecology 12/04/18
--- OUTSIDE RECORDS SUMMARY | 2024-09-13 11:45 | XMS_ITS | Clinical Summary ---
Author Organization [facility] Address [address] [place] [address] Care Team Providers Care Soldering Machine Feeder Name Role Phone Unavailable Primary Care Provider Unavailabl e Social History Tobacco Use Types Packs/Day Years Used Date Smoking Tobacco: Never Assessed Comments Unknown Sex and Gender Information Value Date Recorded Sex Assigned at Not on file Legal Sex Female 5:15 PM CDT Gender Identity Not on file Sexual Orientation Not on file Plan of Treatment Health Maintenance Due Date Last Done Comments Cervical Cancer Screening Pa p Smear (Age 30 to 64) Every 3 Years 1974 Colorectal Cancer Screening Colonoscopy (10 Years) 1974 Annual Physical 1977 Hepatitis C 1992 DTaP, Tdap and Td Vaccines ( 1 - Tdap) 1993 Hepatitis B Vaccines (1 of 3 - 19+ 3-dose series) 1993 Cervical Cancer Screening Pa p with HPV Testing (Age 30 to 64) Every 5 Years 2004 Cervical Cancer Screening with HPV 2004 Mammogram Screening 2014 COVID-19 Vaccine ( - 2023-2 5 season) 2024 Pneumococcal Vaccine: 50+ Ye ars (1 of 1 - PCV) 2024 Zoster Vaccines (1 of 2) 2024 Meningococcal B Vaccine Aged Out No l onger eligible based on patient's age to complete this topic Meningococcal Vaccine Aged Out No kaylie joana eligible based on patient's age to complete this topic RSV Immunizations Under 20 Months Aged Out No longer eligible based on patient's age to complete this topic Insurance [employer]
--- OUTSIDE RECORDS SUMMARY | 2024-09-13 11:45 | XMS_ITS | Encounter Summary ---
Author Organization [facility] Address [address] [facility] [place] [address] Care Team Providers Care Vice President Education Name Role Phone Unavailable Primary Care Provider Unavailabl e Encounter Details Date Type Department Care Team (Late st Contact Info) Description 03/05/2020 Lab Requisition [facility] DermPath Lab [address] [place] [address] Ash Cortez MD [address] [place] [address] Social History Tobacco Use Types Packs/Day Years Used Date Smoking Tobacco: Never Assessed Comments Unknown Sex and Gender Information Value Date Recorded Sex Assigned at Not on file Legal Sex Female 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 Gender Identity Not on file Sexual Orientation Not on file documented as of this encounter Plan of Treatment Not on file documented as of this encounter Procedures Procedure Name Priority Date/Time Associated Diagnosis Comments DERMATOPATHOLOGY Routine 03/04/2020 12:0 0 AM CDT documented in this encounter Results * DERMATOPATHOLOGY (03/04/2020 12:00 AM CDT) Case Report Dermatopathology Report Case: [id number] Authorizing Provider: Ash Cortez MD Collected: 03/04/2020 12:00 AM Ordering Location: [facility] DermPath Lab Received: 03/05/2020 11:05 AM Pathologist: Tomeka Steele MD Specimens: A) - Skin, left lat hip B) - Skin, above right buttocks 0 2:28 PM CDT DERMATOPATHOLOGY LABORATORY Final Diagnosis Specimen A. SKIN, left lat hip: LENTIGINOUS MELANOCYTIC NEVUS, COMPOUND TYPE, IRRITATED (COMPOUND MELANOCYTIC NEVUS WITH ARCHITECTURAL DISORDER) (D22.72) Specimen B. SKIN, above right buttocks: LENTIGINOUS MELANOCYTIC NEVUS, COMPOUND TYPE, IRRITATED AND INFLAMED (COMPOUND MELANOCYTIC NEVUS WITH ARCHITECTURAL DISORDER) (D22.71) (see microscopic description) 0 2:28 PM T DERMATOPATHOLOGY LABORATORY Clinical History A-B: R/O dys nevus. 0 2:28 PM CDT DERMATOPATHOLOGY LABORATORY Gross Description Specimen A: Received is one formalin filled container labeled with the patient's name and designated left lat hip. The specimen consists of a shave biopsy measuring [id number]. Jar 0. Specimen B: Received is one formalin filled container labeled with the patient's name and designated above right buttocks. The specimen consists of a shave biopsy measuring [id number]. Jar 0. 0 2:28 PM T DERMATOPATHOLOGY LABORATORY Microscopic Description Specimen A. SKIN, left lat hip: This is a compound nevus. There is melanin pigment in the stratum corneum. There is architectural disorder characterized by a lentiginous proliferation of melanocytes between irregular nevus nests of cells along the dermal epidermal junction. There is underlying fibroplasia of the papillary dermis. The intradermal component is bland in appearance and matures with depth. (Compound Andre's Nevus or Compound Dysplastic Nevus) Specimen B. SKIN, above right buttocks: This is a compound nevus. There is melanin pigment in the stratum corneum. There is architectural disorder characterized by a lentiginous proliferation of melanocytes between irregular nevus nests of cells along the dermal epidermal junction. There is underlying fibroplasia of the papillary dermis. The intradermal component is bland in appearance and matures with depth. The lesion is inflamed. (Compound Andre's Nevus or Compound Dysplastic Nevus) 0 2:28 PM CDT DERMATOPATHOLOGY LABORATORY Disclaimer An external and internal positive and negative controls are appropriate for the histochemical, immunohistochemical and immunofluorescence stain(s) in this case (if any), except where stated explicitly. The performance characteristics of the stain(s) cited in this report were developed and its performance characteristic determined by the Dermatopathology Laboratory at [facility], directed by Dr. Osmany Tucker. These tests need not be, and therefore are not, approved by the [place] Food and Drug Administration. The tests are used for clinical purposes. Billing Codes Specimen Charges Stain Charges 16682 58772 1 1 0 2:28 PM CDT DERMATOPATHOLOGY LABORATORY Embedded Images 0 2:28 PM CDT DERMATOPATHOLOGY LABORATORY Pathology/Cytology TISSUE SPECIMEN FROM SKIN / Unknown 03/04/2020 03/05/2020 11:05 AM CDT Miscellaneous samples (specimen) TISSUE SPECIMEN FROM SKIN / Unknown 03/04/2020 03/05/2020 11:05 AM CDT Ash Cortez MD LAB - PATHOLOGY/CYTOLOGY ORD ERABLES Final Result DERMATOPATHOLOGY LABORATORY [facility] - Department of Dermatology [facility] Medicine [address] [place] [address], [address] [phone] documented in this encounter Visit Diagnoses Not on filedocumented in this encounter
[2024-09-13 19:44] LABS: Basophils Absolute Auto 0.1 K/mm3 (0.0-0.1); Basophils Percent Auto 0.9 % (0.2-1.2); Eosinophils Absolute Auto 0.1 K/mm3 (0-0.3); Eosinophils Percent Auto 1.4 % (0-4.4); Hematocrit 40.7 % (37.0-47.0); Hemoglobin 13.5 g/dL (12.0-15.0); Immature Granulocyte Absolute 0.01 K/mm3 (0.00-0.031); Immature Granulocyte Percent A 0.2 % (0-0.5); Lymphocytes Absolute Auto 1.81 K/mm3 (0.9-3.2); Lymphocytes Percent Auto 31.5 % (18.3-44.2); Mean Corpuscular HGB Conc 33.2 g/dl (32-36); Mean Corpuscular Hemoglobin 32.2 pg (26-34); Mean Corpuscular Volume 97.1 fl (80-100); Mean Platelet Volume 9.6 fl (7.4-10.4); Monocytes Absolute Auto 0.5 K/mm3 (0.1-0.6); Monocytes Percent Auto 8.9 % (2.6-8.5); Neutrophils Absolute Auto 3.3 K/mm3 (1.3-6.7); Neutrophils Percent Auto 57.1 % (45.5-73.1); Platelet Count Result 284 k/mm3 (150-375); Red Blood Count 4.19 M/mm3 (4.2-5.4); Red Cell Distribution Width 12.2 % (11.5-14.5); White Blood Count 5.7 K/mm3 (4.5-10.0)
[2024-09-13 20:11] LABS: Alanine Aminotransferase 13 U/L (6-35); Albumin Level 4.6 g/dL (3.5-5.1); Alkaline Phosphatase 53 U/L (38-126); Anion Gap 7 mmol/L (4-12); Aspartate Amino Transferase 33 U/L (14-36); Bilirubin,Total 0.8 mg/dL (0.2-1.3); Blood Urea Nitrogen 12 mg/dL (7-17); Calcium 9.3 mg/dL (8.4-10.2); Carbon Dioxide 28 mmol/L (22-30); Chloride 103 mmol/L (98-107); Estimated Glomerular Filt Rate > 60; Glucose 97 mg/dL (65-110); Potassium 4.9 mmol/L (3.4-5.0); Sodium 138 mmol/L (137-145)
[2024-09-13 20:39] LABS: Thyroid Stimulating Hormone 0.919 uIU/mL (0.465-4.680)
[2024-09-13 21:16] LABS: Folic Acid > 20.0 ng/mL (2.76->20)
== END 2024-09-13 11:43 | disposition home or self-care (01) ==
PROVIDERS: PCP Internal Medicine; Visit Provider Nurse Practitioner
DX: Z13.29 Encounter for screening for other suspected endocrine disorder (principal); R53.83 Other fatigue; D64.9 Anemia, unspecified
CPT/HCPCS: 36415; 80053; 82607; 82746; 84443; 85025

== ENCOUNTER 2024-10-30 09:42 | Outpatient (CLI) | payer BC, SELFPAY ==
[2024-11-20 09:54] VITALS: BMI 26.1
--- NOTE | 2024-11-20 09:54 | WPDHOMESLEEP ---
Sleep Study - Home Unattended Date of Study: 10/30/24 Ordering Provider: Fatimah Lopez NP Interpreting Provider: Jeannette Whitman, DO Home Sleep Study Type: Watch PAT Height: 1.73 m Weight: 78.018 kg Body Mass Index: 26.1 Neck Circumference (inches): 13 Downing: 4 Reason for Sleep Study Difficulty falling and staying asleep Sleep History The patient is a 49-year-old female who had a sleep study ordered by her primary care for the evaluation of sleep apnea. The patient admits to excessive daytime sleepiness. She does snore loudly. She denies interruptions in breathing while asleep. She does choke or gasp at night. She denies having trouble breathing on her back. She does have morning headaches. She does have a dry or sore mouth/throat in the morning. She denies nocturnal heartburn. She denies nocturia. She denies having trouble falling asleep. She does have trouble staying asleep. She does have difficulty returning to sleep if she wakes up throughout the night. She denies any hypnotic or sedative use. She denies feeling anxious about sleep. She does feel tired or sleepy during the day. She does feel tired in the morning. She denies having the urge to fall asleep during the day. She denies feeling drowsy while driving. She denies sleep paralysis, cataplexy, and hypnagogic/hypnopompic hallucinations. She does clench or grind her teeth. She denies kicking or jerking her legs excessively. She denies having a restless feeling in her legs. She goes to bed at 11 p.m. on workdays and at 11:30 p.m. on her days off. It takes her 15 minutes to fall asleep. She gets 8 hours of sleep on workdays and 8.5 hours of sleep on her days off. Her sleep is not at all restorative on her days off. She denies taking any planned naps. She denies dream enactment behavior. She denies sleepwalking. She consumes 1-2 cups of a caffeinated beverage per day. She has one alcoholic beverage 1-2 nights per week. She denies tobacco use. She exercises 3-4 nights per week. REPLACED BY [facility] Past Medical History Medical History Basal cell carcinoma Melanoma Allergies Heartburn Unspecified abdominal pain Surgical History Surgical History History of cholecystectomy Family History Family History Father Hypertension Grandparent Family history of malignant neoplasm of stomach Family history of malignant neoplasm of kidney Father Hypertension Grandparent Family history of allergic disorder Family history of malignant neoplasm of stomach Family history of malignant neoplasm of kidney Social History Social History Smoking status: Never smoker Alcohol intake: current Alcohol use details: 3-4 drinks a week Substance use: never Lack of Transportation: No Lack of Food: Never True Current Housing: I Have Housing Concerned About Future Housing: No Difficulty Paying Gas/Electric Bills: No Difficulty Paying for Meds: No Currently Unemployed: No Education: Master's Degree or Higher Difficulty w/ Childcare or Family Care: No Medications Home Medications ?Medication ?Instructions ?Recorded ?Confirmed ?Type calcium polycarbophil [Fiber-Tabs] 1 tablet PO DAILY 09/13/24 09/13/24 History cholecalciferol (vitamin D3) 1 cap PO DAILY 09/13/24 09/13/24 History cyclobenzaprine 10 mg tablet 10 mg PO TID PRN muscle spasm #30 09/13/24 09/13/24 Rx tabs polyethylene glycol 3350 [Miralax] PO DAILY 09/13/24 09/13/24 History Sleep Procedure The sleep study was completed using [employer]eda[employer] a technically adequate device with seven channels: peripheral arterial tone, actigraphy, body position, snore, respiratory movement, pulse oximetry, sleep staging, and heart rate. Prior to using the device, the patient received verbal and written instructions for its application and was provided with the help desk phone number for additional telephonic instruction with 24-hour availability of qualified personnel to answer questions. The study was scored using AASM and CMS guidelines. Sleep Architecture The total recording time is 8 hrs, 11 min. The total sleep time is 7 hrs, 27 min. Sleep latency is 21 minutes. REM latency is 73 minutes. The patient had 5 episodes of waking. Sleep architecture shows 19.1% deep sleep, 62.5% light sleep, and (as % Total Sleep Time) showed NREM (Light 62.5%; Deep 19.1%), and a 18.4% stage REM. The patient spent 100.0% of total sleep time in the supine position. Sleep efficiency was 91.04. Respiratory Analysis The overall AHI (pAHI 4%:) is 0.8. The overall AHI (pAHI 3%:) is 5.6. The central AHI is 0.3. The AHI was 3.8 in NREM and 13.2 in REM sleep. The AHI was 5.6 in Supine and N/A in Non-supine sleep. Percent of Alexander Sanz respirations is 0.0. Oximetry Data The oxygen desaturation index (EBONY 4%:) is 0.8. The mean saturation is 94%, and the lowest saturation is 91%. Time spent with saturation < 88% is 0.0 minutes. Snoring Profile Snoring average intensity is 40 dB. The patient snored above 45 decibels for 7.1 minutes, 1.6% of sleep time. Cardiac Profile The average pulse rate is 72 beats per minutes. The lowest pulse rate is 56 bpm. The highest pulse rate reported is 117 bpm. Atria fibrillation was not detected. Premature beats occur <0.1 per minute. Assessment and Plan Assessment and Plan (1) Sleep disturbance: Code(s): G47.9 - Sleep disorder, unspecified Status: Acute Assessment and Plan: Per AASM guidelines (pAHI 3%), the patient had an overall AHI 5.6 with desaturation down to 91% which is consistent with mild sleep apnea. Due to the patient's insomnia, she qualifies for treatment. I recommend that the patient be prescribed AutoPAP 5-15 cm H2O, CPAP mask/filters/tubing and heated humidity. A mandibular advancement device is also an acceptable treatment option. This should be used with all episodes of sleep.? Compliance should be reviewed within 31-90 days of starting therapy for usage greater than 4 hours per night greater than 70% of the nights. The patient should be asked about symptoms such as?excessive daytime sleepiness, quality of sleep, decreased nocturia, increased?mental functioning such as memory, mood, and concentration. Per CMS guidelines (pAHI 4%), the patient Had an overall AHI of 0.8 with desaturation down to 91%. This is not consistent with sleep disordered breathing. If the patient's insurance only accepts CMS guidelines using the 4% criteria, the patient does not qualify for treatment. I would recommend that the patient have a split study for further evaluation of her sleep disturbances if she does not qualify for treatment based on the results of this study. Data The data obtained during this sleep study is adequate for interpretation. Certification This sleep study has been reviewed by a board certified sleep medicine physician.
== END 2024-10-31 08:55 | disposition home or self-care (01) ==
PROVIDERS: PCP Internal Medicine; Visit Provider Nurse Practitioner
DX: G47.9 Sleep disorder, unspecified (principal); R40.0 Somnolence
CPT/HCPCS: 95800